=== PATIENT | female | born 2000 | race Hispanic/Latino ===

== ENCOUNTER 2022-01-12 13:35 | Day surgery (SDC) | payer OTHER ==
[2022-01-12 14:20] VITALS: BMI 33.1
[2022-01-12] MEDS ORDERED: hydrALAZINE 20 MG/ML VIAL SLOW IVP PRN (14:23)
[2022-01-12 16:44] LABS: Bilirubin Neg (Negative); Blood, Urine 50 (Negative); Clarity Slightly Cloudy (Clear); Glucose, Urine (Dipstick) Normal (Negative); Ketone, Urine Negative (Negative); Leukocyte 25 (Negative); Nitrite Negative (Negative); Protein, Urine (Dipstick) Negative (Neg-Trace); Urobilinogen Normal mg/dL (Less than 2)
[2022-01-12 16:50] LABS: Urine Culture Reflex No No
[2022-01-12 16:57] LABS: Bacteria/HPF None Seen HPF (None Seen); RBC/HPF 0-3 HPF (0-3); Squamous Epithelial 0-3 HPF (0-3); WBC/HPF 0-3 HPF (0-3)
== END 2022-01-12 17:55 | disposition home or self-care (01) ==
LOC: CSHLD/OP 13:35
PROVIDERS: ATTEND Obstetrics & Gynecology
DX: O46.93 Antepartum hemorrhage, unspecified, third trimester (principal); O47.1 False labor at or after 37 completed weeks of gestation; B95.4 Other streptococcus as the cause of diseases classified elsewhere; Z3A.38 38 weeks gestation of pregnancy; Z79.899 Other long term (current) drug therapy
CPT/HCPCS: 81001; 87077; 87086; 99283

== ENCOUNTER 2022-01-23 13:25 | Day surgery (SDC) | payer OTHER ==
[2022-01-23] MEDS ORDERED: hydrALAZINE 20 MG/ML VIAL SLOW IVP PRN (15:06)
== END 2022-01-23 15:05 | disposition home or self-care (01) ==
LOC: CSHLD/OP 13:25
PROVIDERS: ATTEND Obstetrics & Gynecology
DX: O26.893 Other specified pregnancy related conditions, third trimester (principal); N89.8 Other specified noninflammatory disorders of vagina; Z3A.39 39 weeks gestation of pregnancy; Z79.899 Other long term (current) drug therapy
CPT/HCPCS: 99282

== ENCOUNTER 2022-01-25 11:50 | Outpatient (CLI) | payer OTHER | END 2022-01-25 11:51 | disposition home or self-care (01) | LOC: CSHLAB 11:50 | PROVIDERS: ATTEND Family Medicine | DX: Z20.822 Contact with and (suspected) exposure to COVID-19 (principal); Z53.9 Procedure and treatment not carried out, unspecified reason ==

== ENCOUNTER 2023-07-16 12:23 | Inpatient (IN) | payer OTHER ==
[2023-07-16 12:46] VITALS: BMI 35.2
[2023-07-16] MEDS ORDERED: Docusate 100 MG CAP PO PRN (12:56)
[2023-07-16] MEDS ORDERED: Ondansetron PF 4 MG/2 ML Vial IVP PRN (12:56)
[2023-07-16] MEDS ORDERED: Lidocaine 1% (PF) 30 ML VIAL SC PRN (12:56)
[2023-07-16] MEDS ORDERED: hydrALAZINE 20 MG/ML VIAL SLOW IVP PRN ×2 (12:56→23:28)
[2023-07-16] MEDS ORDERED: Acetaminophen 500 MG TAB PO PRN (12:56)
[2023-07-16] MEDS ORDERED: Ibuprofen 800 MG TAB PO PRN (12:56)
[2023-07-16] MEDS ORDERED: Carboprost 250 MCG/ML AMP IM PRN (12:56)
[2023-07-16] MEDS ORDERED: Promethazine HCl 25 MG/ML VIAL IM PRN (12:56)
[2023-07-16] MEDS ORDERED: Methylergonovine 0.2 MG/ML VIAL IM PRN ×2 (12:56→23:28)
[2023-07-16] MEDS ORDERED: Tranexamic Acid 1,000 MG/10 ML VIAL IVP PRN (12:56)
[2023-07-16] MEDS ORDERED: Misoprostol 200 MCG TAB PR PRN (12:56)
[2023-07-16] MEDS ORDERED: Butorphanol Tartrate 1 MG/ML VIAL SLOW IVP PRN (12:56)
[2023-07-16] MEDS ORDERED: Diphenoxylate HCl/Atropine Tablet PO PRN (12:56)
[2023-07-16] MEDS ORDERED: Oxytocin 30 units/NS 500 ML 500 ML IV SCH ×3 (13:00→23:28)
[2023-07-16] MEDS: Penicillin G Potassium 5 MILL.UNITS in Sodium Chloride 0.9% 100 ML IVPB SCH (13:12)
[2023-07-16] MEDS: Lactated Ringer's 1,000 ML IV SCH (13:13)
[2023-07-16 13:25] LABS: Hemoglobin 13.5 g/dL (12.0-15.5); Mean Corpuscular HGB CONC 32.9 g/dL (32.0-36.0); Mean Corpuscular Hemoglobin 28.8 pg (27.0-33.0); Mean Corpuscular Volume 87.4 fl (81.6-98.3); Mean Platelet Volume 11.6 fl (7.4-10.4); Platelet Count 224 10x3/uL (150-450); RBC Distribution Width 15.7 % (11.5-14.5); Red Blood Cell (RBC) Count 4.69 10x6/uL (3.90-5.03); White Blood Cell (WBC) Count 17.7 10x3/uL (3.5-10.5)
[2023-07-16 13:57] LABS: HBSAg Index 0.17 S/CO (0-0.99); Hep B Surf Ag - L&D Non-Reactive S/CO (NonReactive)
[2023-07-16 13:58] LABS: Syphilis Antibody Nonreactive (Nonreactive); Syphilis Antibody Index 0.03 S/CO (<1.00 Non-Reactive)
[2023-07-16 14:54] LABS: ALT (SGPT) 9 U/L (8-55); AST (SGOT) 14 U/L (5-34); Albumin 3.9 g/dL (3.5-5.0); Alkaline Phosphatase 272 U/L (40-110); Anion Gap 14 mmol/L (10-20); BUN (Urea Nitrogen) 9 mg/dL (7.0-18.7); Bilirubin, Total 0.3 mg/dL (0.2-1.2); Calc. Creatinine Clearance 195 mL/min (70-130); Calcium 9.1 mg/dL (7.8-10.44); Carbon Dioxide 18 mmol/L (22-29); Chloride 107 mmol/L (98-107); Estimated GFR 127; Globulin 3.1 g/dL (2.4-3.5); Glucose 94 mg/dL (70-105); Sodium 135 mmol/L (136-145)
[2023-07-16] MEDS: Oxytocin 10 UNITS/ML VIAL ONE (16:16)
[2023-07-16] MEDS: fentaNYL 50 mcg/mL 1 mL Vial SLOW IVP PRN (16:20)
[2023-07-16] MEDS: Ampicillin/Sulbactam 3 GM in Sodium Chloride 0.9% 100 ML IVPB SCH (21:30)
[2023-07-16] MEDS ORDERED: Milk Of Magnesia 30 ML UDCUP PO PRN (23:28)
[2023-07-16] MEDS ORDERED: Bisacodyl 10 MG SUPP PR PRN (23:28)
[2023-07-16] MEDS ORDERED: Lanolin Ointment 7 GM TUBE TOP PRN (23:28)
[2023-07-16] MEDS ORDERED: HYDROcodone/Acetaminophen 5/325 mg Tablet PO PRN ×2 (23:28)
[2023-07-16] MEDS ORDERED: Misoprostol 200 MCG TAB VAG PRN (23:28)
[2023-07-16] MEDS ORDERED: diphenhydrAMINE 25 MG CAP PO PRN (23:28)
[2023-07-16] MEDS ORDERED: Preparation H Ointment 28 GM TUBE PR PRN (23:28)
[2023-07-16] MEDS ORDERED: Boostrix 0.5 ML (Tdap) VIAL (>/=7 yrs of age) IM ONE (23:28)
[2023-07-17] MEDS: Acetaminophen 500 MG TAB PO SCH
[2023-07-17] MEDS: Docusate 100 MG CAP PO SCH ×2 (00:01→09:05)
[2023-07-17] MEDS: Ibuprofen 800 MG TAB PO SCH ×2 (06:25)
[2023-07-17] MEDS: Ferrous Sulfate 325 MG TAB PO SCH ×2 (07:30)
[2023-07-17] MEDS: Benzocaine-Menthol 82.5 ML CAN TOP PRN (09:04)
[2023-07-17] MEDS: Prenatal Vitamin 1 TAB PO SCH (09:05)
[2023-07-17] MEDS: Penicillin G 2.5 MILL.units 2.5 MILL.UNITS in Premix 1 BAG IVPB SCH (19:08)
[2023-07-17] MEDS: Penicillin G Potassium 5 MILL.UNITS VIAL ONE (19:09)
[2023-07-18 07:56] VITALS: BP 119/79; TEMP 99.5
== END 2023-07-18 12:30 | disposition home or self-care (01) | DRG 807 ==
LOC: CSHLD/OP 12:23 → CSHLD 13:27 → CSHPP 22:38
PROVIDERS: ADMIT Family Medicine; ATTEND Family Medicine
PROC: 10E0XZZ Delivery of Products of Conception, External Approach (ICD-10-PCS; principal; 2023-07-16)
PROC: 10D17Z9 Manual Extraction of Products of Conception, Retained, Via Natural or Artificial Opening (ICD-10-PCS; 2023-07-16)
PROC: 10907ZC Drainage of Amniotic Fluid, Therapeutic from Products of Conception, Via Natural or Artificial Opening (ICD-10-PCS; 2023-07-16)
DX: O99.214 Obesity complicating childbirth (principal); Z37.0 Single live birth; Z3A.39 39 weeks gestation of pregnancy; O72.2 Delayed and secondary postpartum hemorrhage; E66.9 Obesity, unspecified; O99.824 Streptococcus B carrier state complicating childbirth; O62.3 Precipitate labor; O99.284 Endocrine, nutritional and metabolic diseases complicating childbirth; E05.80 Other thyrotoxicosis without thyrotoxic crisis or storm
CPT/HCPCS: 36416; 80053; 85027; 86780; 86850; 86900; 86901; 87340; 99285; J0295; J2001; J2540; J2590; J3010; J3490

== ENCOUNTER 2025-01-22 17:21 | Emergency (ER) | payer SELFPAY ==
[2025-01-22] MEDS ORDERED: Acetaminophen 500 MG TAB ONE (17:57)
[2025-01-22] MEDS ORDERED: cefTRIAXone (ROCEPHIN) 2 GM VIAL ONE (17:57)
[2025-01-22 18:15] LABS: #Basophils Less than 0.03 10x3/uL (0.0-0.2); #Eosinophils Less than 0.03 10x3/uL (0.0-0.5); #Monocytes 0.78 10x3/uL (0.0-1.1); #Neutrophils 7.94 10x3/uL (1.5-8.4); %Basophils 0.2 % (0.0-2.0); %Eosinophils 0.1 % (0.0-6.0); %Lymphocytes 13.4 % (18.0-47.0); %Monocytes 7.7 % (0.0-10.0); %Neutrophils 78.4 % (40.0-75.0); Hematocrit 39.8 % (34.9-44.5); Hemoglobin 12.7 g/dL (12.0-15.5); Mean Corpuscular Hemoglobin 28.9 pg (27.0-33.0); Mean Corpuscular Volume 90.7 fL (81.6-98.3); Platelet Count 222 10x3/uL (150-450); Red Blood Cell (RBC) Count 4.39 10x6/uL (3.90-5.03); White Blood Cell (WBC) Count 10.13 10x3/uL (3.5-10.5)
[2025-01-22 18:25] LABS: Glucose, Urine (Dipstick) Normal (Negative); Leukocyte Negative (Negative); Pregnancy Test - Urine (BHCG) Negative (Negative); Pregu Control Background? CLEAR/WHITE (CLR/WHITE); Pregu Control Bar Appear? YES (CONTROL BAR); Protein, Urine (Dipstick) 15 mg/dl (Neg-Trace); Specific Gravity, Urine 1.010 (1.005-1.030)
[2025-01-22 18:26] LABS: ALT (SGPT) 9 U/L (Less than 34); AST (SGOT) 15 U/L (11-34); Albumin 4.5 g/dL (3.1-4.5); Alkaline Phosphatase 79 U/L (40-110); Anion Gap 14 mmol/L (10-20); BUN (Urea Nitrogen) 8 mg/dL (7.0-18.7); Bilirubin, Total 0.5 mg/dL (0.3-1.2); Calc. Creatinine Clearance 0 mL/min (70-130); Calcium 9.4 mg/dL (7.8-10.44); Carbon Dioxide 23 mmol/L (22-29); Chloride 104 mmol/L (98-107); Globulin 3.8 g/dL (2.4-3.5); Glucose 93 mg/dL (70-105); Potassium 3.5 mmol/L (3.5-5.1); Sodium 137 mmol/L (136-145)
[2025-01-22 19:04] LABS: Bacteria/HPF 2+ HPF (None Seen); CAUTI Indications for Culture Dysuria,urgency,freq
[2025-01-22 19:06] LABS: Mucous/LPF 1+ LPF (<2+)
[2025-01-22 19:07] LABS: Urine Culture Reflex No No
== END 2025-01-22 20:30 | disposition home or self-care (01) ==
LOC: CSHERS 17:21
DX: N10 Acute pyelonephritis (principal)
CPT/HCPCS: 36415; 74176; 80053; 81001; 81025; 83605; 84443; 85025; 87040; 87077; 87086; 87186; 87428; 93005; 96374; J0696